=== PATIENT | female | born 2000 | race Caucasian/White ===

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

== ENCOUNTER 2018-03-28 22:32 | Emergency (ER) | payer BC ==
[2018-03-28 22:40] VITALS: RESP 18; TEMP 98.1
--- NOTE | 2018-03-28 23:07 | ED ---
Recheck HPI - General Chief Complaint: Recheck/Abnormal Lab/Rx Stated Complaint: test Time Seen by Provider: 03/28/18 22:57 Source: patient, RN notes reviewed Mode of arrival: ambulatory Limitations: no limitations - History of Present Illness Initial Comments: This is a 18-year-old female who presents to the emergency department with request to have a test performed. Patient states that her last regular period was December 13. She states that at that time she took a test and it was negative. She states that her friend used a test from the same box and it came back negative but she was actually . Patient is concerned that she may be and requests a test. She states that she has felt a little nauseous and has had some abdominal cramping but denies any significant abdominal pain, vomiting, constipation or diarrhea, fevers or chills, chest pain or shortness of breath. - Related Data Home Medications Medication Instructions Recorded Confirmed No Known Home Medications [No 03/28/18 03/28/18 Known Home Medications] Allergies Allergy/AdvReac Type Severity Reaction Status Date / Time amoxicillin Allergy Rash/Hives Verified 03/28/18 22:40 sulfamethoxazole Allergy Rash/Hives Verified 03/28/18 22:40 [From Bactrim] trimethoprim [From Bactrim] Allergy Rash/Hives Verified 03/28/18 22:40 Review of Systems ROS Statement: Those systems with pertinent positive or pertinent negative responses have been documented in the HPI. ROS Other: All systems not noted in ROS Statement are negative. Past Medical History Past Medical History: No Reported History History of Any Multi-Drug Resistant Organisms: None Reported Past Surgical History: No Surgical Hx Reported Past Psychological History: No Psychological Hx Reported Smoking Status: Former smoker Past Alcohol Use History: Rare Past Drug Use History: None Reported General Exam - General Exam Comments Initial Comments: General: Awake and alert, well-developed; in no apparent distress. HEENT: Head atraumatic, normocephalic. Pupils are equal, round and reactive to light. Extraocular movements intact. Oropharynx moist without erythema or exudate. Neck: Supple. Normal ROM. Cardiovascular: Regular rate and rhythm. No murmurs, rubs or gallops. Chest symmetrical. Respiratory: Lungs clear to auscultation bilaterally. No wheezes, rales or rhonchi. Normal respiratory effort with no use of accessory muscles. Abdomen: Soft, non-tender, non-distended. No rigidity, rebound or guarding. Normal bowel sounds in all 4 quadrants. Musculoskeletal: Normal ROM, no tenderness bilateral upper and lower extremities. Ambulating normally. Skin: [place], warm and dry without rashes or lesions. Neurological: Alert and oriented x3. CN II-XII grossly intact. Speech is fluent and answers are appropriate. No focal neuro deficits. Psychiatric: Normal mood and affect. No overt signs of depression or anxiety noted. Limitations: no limitations Course Vital Signs 03/28/18 22:38 Temperature 98.1 F Pulse Rate 87 Respiratory 18 Rate Blood Pressure 140/87 O2 Sat by Pulse 100 Oximetry Medical Decision Making - Medical Decision Making This is a 18-year-old female who presents to emergency department with request for test. Urine test was obtained revealed negative urine hCG. Patient will be discharged home at this time. - Lab Data Lab Results 03/28/18 03/28/18 Range/Units 22:50 22:50 Urine Color Yellow Urine Appearance Cloudy H (Clear) Urine pH 5.5 (5.0-8.0) Ur Specific [place] 1.024 (1.001-1.035) Urine Protein Trace H (Negative) Urine Glucose (UA) Negative (Negative) Urine Ketones Negative (Negative) Urine Blood Negative (Negative) Urine Nitrite Negative (Negative) Urine Bilirubin Negative (Negative) Urine Urobilinogen <2.0 (<2.0) mg/dL Ur Leukocyte Esterase Negative (Negative) Urine RBC 1 (0-5) /hpf Urine WBC 2 (0-5) /hpf Ur Squamous Epith Cells 6 H (0-4) /hpf Urine Mucus Rare H (None) /hpf Urine HCG, Qual Not Detected (Not Detectd) Disposition Clinical Impression: Negative test Disposition: HOME SELF-CARE Condition: Good Instructions: (ED) Additional Instructions: Please follow up with primary care provider within 1-2 days. Return to emergency department if symptoms should worsen or any concerns arise. Is patient prescribed a controlled substance at d/c from ED?: No Referrals: Nehemiah Valles DO [Primary Care Provider] - 1-2 days Time of Disposition: 23:58
[2018-03-28 23:49] LABS: Appearance,Urine Cloudy (Clear); Bilirubin,Urine Negative (Negative); Blood,Urine Negative (Negative); Color,Urine Yellow; Glucose,Urine (UA) Negative (Negative); Ketones,Urine Negative (Negative); Leukocyte Esterase,Urine Negative (Negative); Mucus,Urine Rare /hpf; Nitrite,Urine Negative (Negative); PH, Urine 5.5 (5.0-8.0); Protein,Urine Trace (Negative); RBC,Urine 1 /hpf (0-5); Specific Gravity,Urine 1.024 (1.001-1.035); Squamous Epithelial Cell,Urine 6 /hpf (0-4); Urobilinogen,Urine <2.0 mg/dL (<2.0); WBC,Urine 2 /hpf (0-5)
[2018-03-29 00:07] VITALS: BP 156/78; PULSE 78
== END 2018-03-29 00:07 | disposition home or self-care (01) ==
LOC: EC 22:32
DX: Z32.02 Encounter for pregnancy test, result negative (principal); R11.0 Nausea; R10.9 Unspecified abdominal pain; Z87.891 Personal history of nicotine dependence; Z88.0 Allergy status to penicillin; Z88.1 Allergy status to other antibiotic agents; Z88.2 Allergy status to sulfonamides
CPT/HCPCS: 81001; 81025; 99282

== ENCOUNTER 2019-11-01 08:21 | Emergency (ER) | payer BC ==
[2019-11-01 08:38] VITALS: TEMP 97.9
[2019-11-01] MEDS ORDERED: SODIUM CHLORIDE 0.9% 1,000 ML IV STA (09:40)
--- NOTE | 2019-11-01 10:17 | XR ---
EXAMINATION TYPE: XR chest 2V DATE OF EXAM: 11/01/2019 COMPARISON: NONE HISTORY: Syncope and lightheadedness TECHNIQUE: Frontal and lateral views of the chest are obtained. FINDINGS: There is no focal air space opacity, pleural effusion, or pneumothorax seen. Bilateral ni pple rings are noted. The cardiac silhouette size is within normal limits. The osseous structures a re intact. IMPRESSION: No acute cardiopulmonary process.
[2019-11-01 10:26] LABS: ALT 12 U/L (4-34); AST 20 U/L (14-36); African American GFR (CKD) >90 (>60 ml/min/1.73 sqM); Albumin 4.4 g/dL (3.5-5.0); Alkaline Phosphatase 55 U/L (38-126); Anion Gap 9 mmol/L; Basophils # (A) 0.1 k/uL (0-0.2); Basophils % (A) 1 %; Blood Urea Nitrogen 8 mg/dL (7-17); Calcium 9.3 mg/dL (8.4-10.2); Carbon Dioxide 22 mmol/L (22-30); Chloride 107 mmol/L (98-107); Eosinophils # (A) 0.1 k/uL (0-0.7); Eosinophils % (A) 1 %; Glucose 97 mg/dL (74-99); HCT 41.7 % (34.0-46.0); HGB 13.6 gm/dL (11.4-16.0); Lymphocytes # (A) 1.8 k/uL (1.0-4.8); Lymphocytes % (A) 17 %; MCHC 32.6 g/dL (31.0-37.0); MCV 89.2 fL (80.0-100.0); Mean Platelet Volume 9.8; Monocytes # (A) 0.6 k/uL (0-1.0); Monocytes % (A) 5 %; Neutrophils # (A) 7.9 k/uL (1.3-7.7); Neutrophils % (A) 75 %; Non-African American GFR(CKD) >90 (>60 ml/min/1.73 sqM); Platelet Count 234 k/uL (150-450); Potassium 4.1 mmol/L (3.5-5.1); RBC 4.68 m/uL (3.80-5.40); RDW 13.4 % (11.5-15.5); Sodium 138 mmol/L (137-145); Total Bilirubin 0.5 mg/dL (0.2-1.3); Total Protein 7.3 g/dL (6.3-8.2); WBC 10.5 k/uL (3.8-10.6)
[2019-11-01] MEDS ORDERED: DIPH,PERTUS(ACELL)TETVAC-LF 0.5 ML VIAL IM ONE (10:26)
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
[2019-11-01 10:29] LABS: Prothrombin Time 10.4 sec (9.0-12.0)
[2019-11-01 10:30] LABS: Partial Thromboplastin Time 24.7 sec (22.0-30.0)
[2019-11-01 12:01] LABS: Appearance,Urine Cloudy (Clear); Bacteria,Urine Moderate /hpf; Bilirubin,Urine Negative (Negative); Blood,Urine Negative (Negative); Color,Urine Yellow; Glucose,Urine (UA) Negative (Negative); Ketones,Urine Negative (Negative); Leukocyte Esterase,Urine Negative (Negative); Mucus,Urine Moderate /hpf; Nitrite,Urine Negative (Negative); Protein,Urine Negative (Negative); RBC,Urine 5 /hpf (0-5); Specific Gravity,Urine 1.018 (1.001-1.035); Squamous Epithelial Cell,Urine 1 /hpf (0-4); Urobilinogen,Urine <2.0 mg/dL (<2.0); WBC,Urine 7 /hpf (0-5)
[2019-11-01 12:07] VITALS: BP 120/68; PULSE 61; RESP 18
== END 2019-11-01 12:08 | disposition home or self-care (01) ==
LOC: EC 08:21
DX: R55 Syncope and collapse (principal); T24.202A Burn of second degree of unspecified site of left lower limb, except ankle and foot, initial encounter; T31.0 Burns involving less than 10% of body surface; Z23 Encounter for immunization; Z87.891 Personal history of nicotine dependence; Z88.0 Allergy status to penicillin; Z88.1 Allergy status to other antibiotic agents; Z88.2 Allergy status to sulfonamides; X18.XXXA Contact with other hot metals, initial encounter
CPT/HCPCS: 36415; 71046; 80053; 81001; 81025; 83735; 84484; 85025; 85610; 85730; 90471; 90715; 93005; 96360; 99284

== ENCOUNTER 2021-05-05 16:37 | Emergency (ER) | payer BC ==
[2021-05-05 16:59] VITALS: BP 144/93; PULSE 71; RESP 16; TEMP 98.6
[2021-05-05 18:26] LABS: Basophils # (A) 0.1 k/uL (0-0.2); Basophils % (A) 1 %; Eosinophils # (A) 0.1 k/uL (0-0.7); Eosinophils % (A) 1 %; HCT 40.1 % (34.0-46.0); Lymphocytes # (A) 1.6 k/uL (1.0-4.8); Lymphocytes % (A) 20 %; MCH 31.9 pg (25.0-35.0); MCHC 34.8 g/dL (31.0-37.0); MCV 91.7 fL (80.0-100.0); Mean Platelet Volume 9.8; Monocytes # (A) 0.6 k/uL (0-1.0); Monocytes % (A) 7 %; Neutrophils # (A) 5.6 k/uL (1.3-7.7); Neutrophils % (A) 69 %; Platelet Count 206 k/uL (150-450); RBC 4.37 m/uL (3.80-5.40); RDW 12.9 % (11.5-15.5)
[2021-05-05 18:30] LABS: Appearance,Urine Cloudy (Clear); Bacteria,Urine Rare /hpf; Bilirubin,Urine Negative (Negative); Blood,Urine Large (Negative); Color,Urine Yellow; Glucose,Urine (UA) Negative (Negative); Ketones,Urine Negative (Negative); Leukocyte Esterase,Urine Negative (Negative); Mucus,Urine Rare /hpf; Nitrite,Urine Negative (Negative); PH, Urine 5.5 (5.0-8.0); Protein,Urine 1+ (Negative); RBC,Urine 2 /hpf (0-5); Specific Gravity,Urine 1.031 (1.001-1.035); Squamous Epithelial Cell,Urine 10 /hpf (0-4); Urobilinogen,Urine <2.0 mg/dL (<2.0); WBC,Urine 4 /hpf (0-5)
[2021-05-05 18:38] LABS: ALT 14 U/L (4-34); AST 22 U/L (14-36); African American GFR (CKD) >90 (>60 ml/min/1.73 sqM); Albumin 4.5 g/dL (3.5-5.0); Alkaline Phosphatase 53 U/L (38-126); Anion Gap 10 mmol/L; Blood Urea Nitrogen 7 mg/dL (7-17); Calcium 9.5 mg/dL (8.4-10.2); Carbon Dioxide 23 mmol/L (22-30); Chloride 103 mmol/L (98-107); Glucose 90 mg/dL (74-99); Non-African American GFR(CKD) >90 (>60 ml/min/1.73 sqM); Potassium 3.8 mmol/L (3.5-5.1); Sodium 136 mmol/L (137-145); Total Bilirubin 0.2 mg/dL (0.2-1.3); Total Protein 7.4 g/dL (6.3-8.2)
--- NOTE | 2021-05-05 18:40 | ED ---
Female Urogenital HPI - General Chief complaint: Vaginal Bleeding Stated complaint: 10 wks preg, vag bleeding Time Seen by Provider: 05/05/21 17:32 Source: patient Mode of arrival: ambulatory Limitations: no limitations - History of Present Illness Initial comments: Patient is a 21-year-old female, currently 11 weeks , presenting to the emergency Department with complaints of vaginal bleeding started about 4:30 this evening just prior to arrival. Patient states she got out of the shower and noticed some bleeding that started. States she did initially have a small gush of bright red blood and then now it swelling down. She denies any abdominal pain, no abdominal cramping. This is her first , her WOOD BOATBUILDER is Dr. Bazan. She's had no complications thus far, she states she had an ultrasound a couple weeks ago that showed no acute abnormalities. She denies any recent fevers or chills, no dysuria, no chest pain or shortness of breath. She denies any previous abdominal surgeries. She has no further complaints. Her vitals ar e stable upon arrival. - Related Data Home Medications Medication Instructions Recorded Confirmed No Known Home Medications 05/05/21 05/05/21 Allergies Allergy/AdvReac Type Severity Reaction Status Date / Time amoxicillin Allergy Rash/Hives Verified 05/05/21 18:06 Penicillins Allergy Unknown Verified 05/05/21 18:06 sulfamethoxazole Allergy Rash/Hives Verified 05/05/21 18:06 [From Bactrim] trimethoprim [From Bactrim] Allergy Rash/Hives Verified 05/05/21 18:06 Review of Systems ROS Statement: Those systems with pertinent positive or pertinent negative responses have been documented in the HPI. ROS Other: All systems not noted in ROS Statement are negative. Past Medical History Past Medical History: No Reported History History of Any Multi-Drug Resistant Organisms: None Reported Past Surgical History: No Surgical Hx Reported Past Psychological History: No Psychological Hx Reported Smoking Status: Former smoker Past Alcohol Use History: Rare Past Drug Use History: None Reported General Exam - General Exam Comments Initial Comments: GENERAL: Patient is well-developed and well-nourished. Patient is nontoxic and in no acute distress. HEAD: Atraumatic, normocephalic. EYES: Pupils equal round and reactive to light, extraocular movements intact, sclera anicteric, conjunctiva are normal. Eyelids were unremarkable. ENT: Nares patent, oropharynx clear without exudates. Moist mucous membranes. NECK: Normal range of motion, supple without lymphadenopathy or JVD. LUNGS: Unlabored respirations. Breath sounds clear to auscultation bilaterally and equal. No wheezes rales or rhonchi. HEART: Regular rate and rhythm without murmurs, rubs or gallops. ABDOMEN: Soft, nontender, normoactive bowel sounds. No guarding, no rebound. No masses appreciated. : Deferred MUSCULOSKELETAL: Normal extremities with adequate strength and normal range of motion, no pitting or edema. No clubbing or cyanosis. NEUROLOGICAL: Patient is alert and oriented x 3. PSYCH: Normal mood, normal affect. SKIN: Warm, Dry, normal turgor, no rashes or lesions noted. Limitations: no limitations Course Vital Signs 05/05/21 16:57 Temperature 98.6 F Pulse Rate 71 Respiratory 16 Rate Blood Pressure 144/93 O2 Sat by Pulse 99 Oximetry Medical Decision Making - Medical Decision Making Patient is a 21-year-old female, currently 11 weeks , presenting with vaginal bleeding started 2 hours prior to arrival. This is her first , WOOD BOATBUILDER is Dr. Bazan. No other symptoms, no belly pain. Her vitals are stable. Labs are all within normal limits, ultrasound reveals a viable IUP with heart rate of 170s, possible small subchorionic bleed, no other complicated process seen. Patient's blood type is A+. I discussed these findings with the patient. I recommended pelvic rest and follow up with her WOOD BOATBUILDER. She is agreeable to this plan of care. Return parameters were discussed and she verbalized understanding. Case discussed with Dr. Thomas. - Lab Data Result diagrams: 05/05/21 18:18 05/05/21 18:18 Lab Results 05/05/21 05/05/21 05/05/21 Range/Units 18:18 18:18 18:18 WBC 8.0 (3.8-10.6) k/uL RBC 4.37 (3.80-5.40) m/uL Hgb 14.0 (11.4-16.0) gm/dL Hct 40.1 (34.0-46.0) % MCV 91.7 (80.0-100.0) fL MCH 31.9 (25.0-35.0) pg MCHC 34.8 (31.0-37.0) g/dL RDW 12.9 (11.5-15.5) % Plt Count 206 (150-450) k/uL MPV 9.8 Neutrophils % 69 % Lymphocytes % 20 % Monocytes % 7 % Eosinophils % 1 % Basophils % 1 % Neutrophils # 5.6 (1.3-7.7) k/uL Lymphocytes # 1.6 (1.0-4.8) k/uL Monocytes # 0.6 (0-1.0) k/uL Eosinophils # 0.1 (0-0.7) k/uL Basophils # 0.1 (0-0.2) k/uL Sodium 136 L (137-145) mmol/L Potassium 3.8 (3.5-5.1) mmol/L Chloride 103 (98-107) mmol/L Carbon Dioxide 23 (22-30) mmol/L Anion Gap 10 mmol/L BUN 7 (7-17) mg/dL Creatinine 0.55 (0.52-1.04) mg/dL Est GFR (CKD-EPI)AfAm >90 (>60 ml/min/1.73 sqM) Est GFR (CKD-EPI)NonAf >90 (>60 ml/min/1.73 sqM) Glucose 90 (74-99) mg/dL Calcium 9.5 (8.4-10.2) mg/dL Total Bilirubin 0.2 (0.2-1.3) mg/dL AST 22 (14-36) U/L ALT 14 (4-34) U/L Alkaline Phosphatase 53 (38-126) U/L Total Protein 7.4 (6.3-8.2) g/dL Albumin 4.5 (3.5-5.0) g/dL Urine Color Yellow Urine Appearance Cloudy H (Clear) Urine pH 5.5 (5.0-8.0) Ur Specific [place] 1.031 (1.001-1.035) Urine Protein 1+ H (Negative) Urine Glucose (UA) Negative (Negative) Urine Ketones Negative (Negative) Urine Blood Large H (Negative) Urine Nitrite Negative (Negative) Urine Bilirubin Negative (Negative) Urine Urobilinogen <2.0 (<2.0) mg/dL Ur Leukocyte Esterase Negative (Negative) Urine RBC 2 (0-5) /hpf Urine WBC 4 (0-5) /hpf Ur Squamous Epith Cells 10 H (0-4) /hpf Urine Bacteria Rare H (None) /hpf Urine Mucus Rare H (None) /hpf Blood Type Blood Type Recheck Bld Type Recheck Status 05/05/21 Range/Units 18:18 WBC (3.8-10.6) k/uL RBC (3.80-5.40) m/uL Hgb (11.4-16.0) gm/dL Hct (34.0-46.0) % MCV (80.0-100.0) fL MCH (25.0-35.0) pg MCHC (31.0-37.0) g/dL RDW (11.5-15.5) % Plt Count (150-450) k/uL MPV Neutrophils % % Lymphocytes % % Monocytes % % Eosinophils % % Basophils % % Neutrophils # (1.3-7.7) k/uL Lymphocytes # (1.0-4.8) k/uL Monocytes # (0-1.0) k/uL Eosinophils # (0-0.7) k/uL Basophils # (0-0.2) k/uL Sodium (137-145) mmol/L Potassium (3.5-5.1) mmol/L Chloride (98-107) mmol/L Carbon Dioxide (22-30) mmol/L Anion Gap mmol/L BUN (7-17) mg/dL Creatinine (0.52-1.04) mg/dL Est GFR (CKD-EPI)AfAm (>60 ml/min/1.73 sqM) Est GFR (CKD-EPI)NonAf (>60 ml/min/1.73 sqM) Glucose (74-99) mg/dL Calcium (8.4-10.2) mg/dL Total Bilirubin (0.2-1.3) mg/dL AST (14-36) U/L ALT (4-34) U/L Alkaline Phosphatase (38-126) U/L Total Protein (6.3-8.2) g/dL Albumin (3.5-5.0) g/dL Urine Color Urine Appearance (Clear) Urine pH (5.0-8.0) Ur Specific [place] (1.001-1.035) Urine Protein (Negative) Urine Glucose (UA) (Negative) Urine Ketones (Negative) Urine Blood (Negative) Urine Nitrite (Negative) Urine Bilirubin (Negative) Urine Urobilinogen (<2.0) mg/dL Ur Leukocyte Esterase (Negative) Urine RBC (0-5) /hpf Urine WBC (0-5) /hpf Ur Squamous Epith Cells (0-4) /hpf Urine Bacteria (None) /hpf Urine Mucus (None) /hpf Blood Type A Positive Blood Type Recheck No Previous Record Bld Type Recheck Status [facility] ONLY Disposition Clinical Impression: Vaginal bleeding during , Subchorionic hemorrhage in first trimester Disposition: HOME SELF-CARE Condition: Stable Instructions (If sedation given, give patient instructions): Subchorionic H emorrhage (ED) Additional Instructions: Please return to the Emergency Department if symptoms worsen or any other concerns. Recommend pelvic rest. Follow-up with your WOOD BOATBUILDER. Is patient prescribed a controlled substance at d/c from ED?: No Referrals: Nehemiah Valles DO [Primary Care Provider] - 1-2 days Sophie Bazan MD [STAFF PHYSICIAN] - 1-2 days Time of Disposition: 19:22
--- NOTE | 2021-05-05 19:11 | US ---
EXAMINATION TYPE: Transabdominal DATE OF EXAM: 05/05/2021 6:56 PM COMPARISON: NONE CLINICAL HISTORY: 11wks preg, bleeding x today. Bleeding. . EXAM PERFORMED: Transabdominal (TA) EXAM MEASUREMENTS: GESTATIONAL AGE / DATING Physician Established: (10 weeks/4 days) EDC: 11/27/2021 Dates by LMP: (10 weeks/4 days) EDC: 11/27/2021 Dates by First Scan: This is first scan at this facility. Dates by Current Scan for: (10 weeks/2 days) EDC: 11/29/2021 MATERNAL ANATOMY Uterus: 9.3 x 7.4 x 6.2 cm. Anteverted. Right Ovary: Not seen. Left Ovary: 3.4 x 2.3 x 2.2 cm. Post CDS / Adnexa: Appear to be wnl. Presence of free fluid: Not seen. Presence of corpus luteal cyst: Not seen. Presence of subchorionic bleed: Possible. Hypoechoic area seen adjacent to the gestational sac: 2.1 x 1.7 x 0.7 cm. GESTATION / SURVEY CRL: 3.37 cm. (10 weeks/2 days) Yolk Sac (normal less than 6mm): 4mm. Heart Rate: 177 bpm. Lowest measured 176 bpm, Highest measured 178 bpm. Rhythm: Upper limits of normal versus slightly high HR. IUP: Viable IUP Nuchal Translucency 10-14wks (normal less than 3mm): Not well seen. Exam slightly limited due to patient body habitus. Date of LMP: 02/20/2021 Beta HcG (if available): Not available. IMPRESSION: The ultrasound gestational age is 10 weeks and 2 days. No complicating process seen.
== END 2021-05-05 19:27 | disposition home or self-care (01) ==
LOC: EC 16:37
DX: O20.9 Hemorrhage in early pregnancy, unspecified (principal); Z3A.11 11 weeks gestation of pregnancy; Z87.891 Personal history of nicotine dependence
CPT/HCPCS: 36415; 76801; 80053; 81001; 85025; 86900; 86901; 99284

== ENCOUNTER 2021-08-18 17:58 | Emergency (ER) | payer BC ==
[2021-08-18] MEDS ORDERED: ONDANSETRON 4 MG/2 ML VIAL IVP STA (20:25)
[2021-08-18] MEDS ORDERED: SODIUM CHLORIDE 0.9% 1,000 ML IV STA ×2 (20:25→21:15)
[2021-08-18 20:45] LABS: Basophils % (A) 1 %; Eosinophils # (A) 0.1 k/uL (0-0.7); Eosinophils % (A) 1 %; HCT 41.3 % (34.0-46.0); HGB 14.4 gm/dL (11.4-16.0); Lymphocytes % (A) 18 %; MCH 31.2 pg (25.0-35.0); MCHC 34.9 g/dL (31.0-37.0); MCV 89.2 fL (80.0-100.0); Mean Platelet Volume 9.3; Monocytes # (A) 0.4 k/uL (0-1.0); Monocytes % (A) 7 %; Neutrophils # (A) 3.9 k/uL (1.3-7.7); Neutrophils % (A) 71 %; Platelet Count 149 k/uL (150-450); RBC 4.64 m/uL (3.80-5.40); RDW 13.6 % (11.5-15.5); WBC 5.5 k/uL (3.8-10.6)
[2021-08-18] MEDS ORDERED: SODIUM CHLORIDE 0.9% 50 ML IVPB ONE (20:45)
[2021-08-18 20:50] LABS: Appearance,Urine Cloudy (Clear); Bacteria,Urine Occasional /hpf; Bilirubin,Urine Negative (Negative); Blood,Urine Negative (Negative); Color,Urine Yellow; Glucose,Urine (UA) Negative (Negative); Ketones,Urine 4+ (Negative); Leukocyte Esterase,Urine Large (Negative); Mucus,Urine Many /hpf; Nitrite,Urine Negative (Negative); Protein,Urine 1+ (Negative); RBC,Urine 3 /hpf (0-5); Specific Gravity,Urine 1.033 (1.001-1.035); Squamous Epithelial Cell,Urine 17 /hpf (0-4); WBC,Urine 11 /hpf (0-5)
[2021-08-18] MEDS ORDERED: CASIRIVIMAB (REGN10933) (EUA) 600 MG, IMDEVIMAB (REGN10987) (EUA) 600 MG in SODIUM CHLO... IVPB ONE (21:00)
[2021-08-18 21:04] LABS: ALT 10 U/L (4-34); AST 26 U/L (14-36); African American GFR (CKD) >90 (>60 ml/min/1.73 sqM); Alkaline Phosphatase 93 U/L (38-126); Anion Gap 11 mmol/L; Blood Urea Nitrogen 7 mg/dL (7-17); Carbon Dioxide 19 mmol/L (22-30); Chloride 103 mmol/L (98-107); Glucose 79 mg/dL (74-99); Non-African American GFR(CKD) >90 (>60 ml/min/1.73 sqM); Potassium 3.9 mmol/L (3.5-5.1); Sodium 133 mmol/L (137-145); Total Bilirubin 0.5 mg/dL (0.2-1.3); Total Protein 7.5 g/dL (6.3-8.2)
[2021-08-18 23:36] VITALS: BP 105/67; PULSE 83; RESP 16; TEMP 98
[2021-08-18] MEDS ORDERED: ONDANSETRON 4 MG ODT STARTER PACK 2 TAB BTL PO STA (23:45)
--- NOTE | 2021-08-18 23:45 | ED ---
Nausea/Vomiting/Diarrhea HPI - General Chief complaint: Nausea/Vomiting/Diarrhea Stated complaint: Sent by urgent care for dehydration Time Seen by Provider: 08/18/21 20:04 Source: patient, RN notes reviewed Mode of arrival: ambulatory Limitations: no limitations - History of Present Illness Initial comments: The patient is a 21-year-old female presenting to the emergency department with concerns of dehydration. Patient is currently 25 weeks , this is her first , SUPPLY AND DISTRIBUTION MANAGER is Dr. Bazan. Patient states started feeling congested, mild cough and body aches that came on suddenly yesterday. She's also been having increasing nausea and vomiting. Patient denies any abdominal pain, no vaginal bleeding. She denies any chest pains. She does have some mild shortness of breath. No headaches, no fevers. No leg swelling. Patient has no further complaints. Her vital signs are stable upon arrival. - Related Data Home Medications Medication Instructions Recorded Confirmed No Known Home Medications 05/05/21 05/05/21 Allergies Allergy/AdvReac Type Severity Reaction Status Date / Time amoxicillin Allergy Rash/Hives Verified 08/18/21 18:47 Penicillins Allergy Unknown Verified 08/18/21 18:47 sulfamethoxazole Allergy Rash/Hives Verified 08/18/21 18:47 [From Bactrim] trimethoprim [From Bactrim] Allergy Rash/Hives Verified 08/18/21 18:47 Review of Systems ROS Statement: Those systems with pertinent positive or pertinent negative responses have been documented in the HPI. ROS Other: All systems not noted in ROS Statement are negative. Past Medical History Past Medical History: No Reported History History of Any Multi-Drug Resistant Organisms: None Reported Past Surgical History: No Surgical Hx Reported Past Psychological History: No Psychological Hx Reported Smoking Status: Former smoker Past Alcohol Use History: Rare Past Drug Use History: None Reported General Exam - General Exam Comments Initial Comments: GENERAL: Patient is well-developed and well-nourished. Patient is nontoxic and in no acute distress. HEAD: Atraumatic, normocephalic. EYES: Pupils equal round and reactive to light, extraocular movements intact, sclera anicteric, conjunctiva are normal. Eyelids were unremarkable. ENT: Oropharynx clear without exudates. Moist mucous membranes. NECK: Normal range of motion, supple without lymphadenopathy or JVD. LUNGS: Unlabored respirations. Breath sounds clear to auscultation bilaterally and equal. No wheezes rales or rhonchi. HEART: Regular rate and rhythm without murmurs, rubs or gallops. ABDOMEN: Soft, nontender, normoactive bowel sounds. No guarding, no rebound. No masses appreciated. MUSCULOSKELETAL: Normal extremities with adequate strength and normal range of motion, no pitting or edema. No clubbing or cyanosis. NEUROLOGICAL: Patient is alert and oriented x 3. SKIN: Warm, Dry, normal turgor, no rashes or lesions noted. Limitations: no limitations Course Vital Signs 08/18/21 08/18/21 08/18/21 18:47 20:21 23:36 Temperature 98.8 F 98.0 F Pulse Rate 77 99 83 Respiratory 20 22 16 Rate Blood Pressure 134/81 148/80 105/67 O2 Sat by Pulse 99 96 96 Oximetry Medical Decision Making - Medical Decision Making Patient is a 21-year-old female presenting for nausea vomiting, cough and congestion over the past 1-2 days. She is currently 25 weeks . Her rapid Covid is positive. Her urine shows 4+ ketones, 11 WBCs in her urine over this is a very dirty sample. She is has no dysuria or frequency. She did agree to monoclonal antibodies, she received these without adverse effects. She has received 2 L of fluids, Zofran. She reports improvement in her symptoms. Patient stable for discharge. I will give her a Zofran starter pack to go home with. She can follow up with her SUPPLY AND DISTRIBUTION MANAGER. Return parameters were discussed with her and she verbalized understanding. - Lab Data Result diagrams: 08/18/21 20:31 08/18/21 20:31 Lab Results 08/18/21 08/18/21 08/18/21 Range/Units 18:51 20:31 20:31 WBC 5.5 (3.8-10.6) k/uL RBC 4.64 (3.80-5.40) m/uL Hgb 14.4 (11.4-16.0) gm/dL Hct 41.3 (34.0-46.0) % MCV 89.2 (80.0-100.0) fL MCH 31.2 (25.0-35.0) pg MCHC 34.9 (31.0-37.0) g/dL RDW 13.6 (11.5-15.5) % Plt Count 149 L (150-450) k/uL MPV 9.3 Neutrophils % 71 % Lymphocytes % 18 % Monocytes % 7 % Eosinophils % 1 % Basophils % 1 % Neutrophils # 3.9 (1.3-7.7) k/uL Lymphocytes # 1.0 (1.0-4.8) k/uL Monocytes # 0.4 (0-1.0) k/uL Eosinophils # 0.1 (0-0.7) k/uL Basophils # 0.0 (0-0.2) k/uL Sodium (137-145) mmol/L Potassium (3.5-5.1) mmol/L Chloride (98-107) mmol/L Carbon Dioxide (22-30) mmol/L Anion Gap mmol/L BUN (7-17) mg/dL Creatinine (0.52-1.04) mg/dL Est GFR (CKD-EPI)AfAm (>60 ml/min/1.73 sqM) Est GFR (CKD-EPI)NonAf (>60 ml/min/1.73 sqM) Glucose (74-99) mg/dL Calcium (8.4-10.2) mg/dL Total Bilirubin (0.2-1.3) mg/dL AST (14-36) U/L ALT (4-34) U/L Alkaline Phosphatase (38-126) U/L Total Protein (6.3-8.2) g/dL Albumin (3.5-5.0) g/dL Urine Color Yellow Urine Appearance Cloudy H (Clear) Urine pH 6.0 (5.0-8.0) Ur Specific [place] 1.033 (1.001-1.035) Urine Protein 1+ H (Negative) Urine Glucose (UA) Negative (Negative) Urine Ketones 4+ H (Negative) Urine Blood Negative (Negative) Urine Nitrite Negative (Negative) Urine Bilirubin Negative (Negative) Urine Urobilinogen 2.0 (<2.0) mg/dL Ur Leukocyte Esterase Large H (Negative) Urine RBC 3 (0-5) /hpf Urine WBC 11 H (0-5) /hpf Ur Squamous Epith Cells 17 H (0-4) /hpf Urine Bacteria Occasional H (None) /hpf Urine Mucus Many H (None) /hpf Coronavirus (PCR) Detected A (Not Detectd) 08/18/21 Range/Units 20:31 WBC (3.8-10.6) k/uL RBC (3.80-5.40) m/uL Hgb (11.4-16.0) gm/dL Hct (34.0-46.0) % MCV (80.0-100.0) fL MCH (25.0-35.0) pg MCHC (31.0-37.0) g/dL RDW (11.5-15.5) % Plt Count (150-450) k/uL MPV Neutrophils % % Lymphocytes % % Monocytes % % Eosinophils % % Basophils % % Neutrophils # (1.3-7.7) k/uL Lymphocytes # (1.0-4.8) k/uL Monocytes # (0-1.0) k/uL Eosinophils # (0-0.7) k/uL Basophils # (0-0.2) k/uL Sodium 133 L (137-145) mmol/L Potassium 3.9 (3.5-5.1) mmol/L Chloride 103 (98-107) mmol/L Carbon Dioxide 19 L (22-30) mmol/L Anion Gap 11 mmol/L BUN 7 (7-17) mg/dL Creatinine 0.43 L (0.52-1.04) mg/dL Est GFR (CKD-EPI)AfAm >90 (>60 ml/min/1.73 sqM) Est GFR (CKD-EPI)NonAf >90 (>60 ml/min/1.73 sqM) Glucose 79 (74-99) mg/dL Calcium 9.0 (8.4-10.2) mg/dL Total Bilirubin 0.5 (0.2-1.3) mg/dL AST 26 (14-36) U/L ALT 10 (4-34) U/L Alkaline Phosphatase 93 (38-126) U/L Total Protein 7.5 (6.3-8.2) g/dL Albumin 4.0 (3.5-5.0) g/dL Urine Color Urine Appearance (Clear) Urine pH (5.0-8.0) Ur Specific [place] (1.001-1.035) Urine Protein (Negative) Urine Glucose (UA) (Negative) Urine Ketones (Negative) Urine Blood (Negative) Urine Nitrite (Negative) Urine Bilirubin (Negative) Urine Urobilinogen (<2.0) mg/dL Ur Leukocyte Esterase (Negative) Urine RBC (0-5) /hpf Urine WBC (0-5) /hpf Ur Squamous Epith Cells (0-4) /hpf Urine Bacteria (None) /hpf Urine Mucus (None) /hpf Coronavirus (PCR) (Not Detectd) Disposition Clinical Impression: Dehydration, COVID-19 Disposition: HOME SELF-CARE Condition: Stable Instructions (If sedation given, give patient instructions): Coronavirus Disease 2019 (COVID-19), Dehydration (ED) Additional Instructions: Please return to the Emergency Department if symptoms worsen or any other concerns. Continue to increase her fluids. May take Zofran every 8 hours for any additional nausea or vomiting. Please follow up with your SUPPLY AND DISTRIBUTION MANAGER. Is patient prescribed a controlled substance at d/c from ED?: No Referrals: Nehemiah Valles DO [Primary Care Provider] - 1-2 days Sophie Bazan MD [STAFF PHYSICIAN] - 1-2 days Time of Disposition: 23:45
== END 2021-08-19 00:09 | disposition home or self-care (01) ==
LOC: EC 17:58
DX: O99.282 Endocrine, nutritional and metabolic diseases complicating pregnancy, second trimester (principal); E86.0 Dehydration; O98.512 Other viral diseases complicating pregnancy, second trimester; U07.1 COVID-19; Z3A.25 25 weeks gestation of pregnancy
CPT/HCPCS: 96365; 96375 ×2; 96361 ×4; 99284 ×2; 36415; 80053; 85025; 81001; 87086; 87635; M0243; J2405; S0119; Q0243

== ENCOUNTER 2021-11-12 22:32 | Outpatient (CLI) | payer BC ==
[2021-11-13 00:38] VITALS: BP 134/82; PULSE 112; RESP 16; TEMP 97
--- NOTE | 2022-01-14 21:50 | P.MSEPDOC ---
Presenting Problems - Arrival Data Date of Arrival on Unit: 11/12/21 Time of Arrival on Unit: 22:32 Mode of Transport: Ambulatory - Complaint OB-Reason for Admission/Chief Complaint: Normal Show Comment: Patient had a doctors appt this morning. Cervical exam in office was 3- 4cm. and 70%effaced. Patient had some pink discharge on toilet paper when she wiped. Medical History - Information : 1 Para: 0 Term: 0 : 0 Abortions: Spontaneous or Elective: 0 Number of Living Children: 1 - Gestational Age Gestational Age by BUBBA (wks/days): 34 Weeks and 0 Days Review of Systems - Review of Systems Constitutional: No problems Breast: No problems ENT: No problems Cardiovascular: No problems Respiratory: No problems Gastrointestinal: No problems Genitourinary: No problems Musculoskeletal: No problems Neurological: No problems Skin: No problems Vital Signs - Temperature Temperature: 97.0 F Temperature Source: Oral - Pulse Right Brachial Pulse Rate: 112 Pulse Assessment Method: Automatic Cuff - Respirations Respiratory Rate: 16 Oxygen Delivery Method: Room Air - Blood Pressure Right Arm Blood Pressure: 134/82 Blood Pressure Mean: 99 Blood Pressure Source: Automatic Cuff Medical Screen Scoring - Cervical Exam Dilation (cm): 3.5 Effacement (%): 60 Station: -2 Membranes: Intact - Assessment - Baby A Baseline FHR: 130 Heart Rate - NICHD Category: Category I (Normal) NST: Reactive Physician Notification - Physician Notified Physician Notified Date: 11/12/21 Physician Notified Time: 23:56 Physician: Ileana Mcdonnell New Order Received: Yes - Notification Comment Comment: RN spoke with Dr. Mcdonnell and reported that earlier at dinner patient had wiped. using the bathroom and found pink/brown discharge on the toilet paper. patient states no contractions was told by Beni that bloody show could be sign of labor so she came in. Patient stating no pain. Reactive NST. Vital signs WNL. TOCO not showing contractions and patient states she is not feeling any contractions. SVE remained unchanged from office visit this AM and after one hour recheck. Patient is to be discharged home and is to keep appointment on Wednesday with Dr. Bazan. Patient is scheduled to be induced next . Patient updated on plan of care and is in agreement. Maternal Triage Index - Maternal Triage Index Presenting for scheduled procedure w/no complaint: No - Stat/Priority 1 Stat Priority 1: No - Urgent/Priority 2 Urgent Priority 2: No - Prompt/Priority 3 Prompt Priority 3: No - Non-Urgent/Priority 4 Non-Urgent Priority 4: Yes Criteria Met for Priority 4: >37 weeks with pink/brown vaginal discharge after urinating Disposition - Disposition OB Disposition: Discharge to home Discharge Date: 11/13/21 Discharge Time: 00:30 I agree with the RN Medical Screening Exam: Yes Case reviewed; plan agreed upon as documented in EMR&OBIX.: Yes Diagnosis: FALSE LABOR BEFORE 37 COMPLETED WEEKS OF GEST, THIRD TRI
== END 2021-11-13 | disposition home or self-care (01) ==
LOC: FBPOP 22:32
PROVIDERS: ATTEND Obstetrics & Gynecology Obstetrics
DX: O47.03 False labor before 37 completed weeks of gestation, third trimester (principal); Z3A.34 34 weeks gestation of pregnancy; Z88.1 Allergy status to other antibiotic agents; Z88.0 Allergy status to penicillin; Z88.2 Allergy status to sulfonamides; Z87.891 Personal history of nicotine dependence
CPT/HCPCS: 59025; 99213

== ENCOUNTER 2021-11-19 18:10 | Inpatient (IN) | payer BC, OTHER ==
[2021-11-19] MEDS ORDERED: TERBUTALINE 1 MG/ML VIAL SQ PRN (19:32)
[2021-11-19] MEDS ORDERED: OXYTOCIN 10 UNIT/ML 1 ML VIAL IM PRN (19:32)
[2021-11-19] MEDS ORDERED: METHYLERGONOVINE 0.2 MG/ML 1 ML AMP IM PRN (19:32)
[2021-11-19] MEDS ORDERED: CARBOPROST TROMETHAMINE 250 MCG/ML 1 ML AMP IM PRN (19:32)
[2021-11-19] MEDS ORDERED: LIDOCAINE 1% (PF) 10 MG/ML (30 ML SDV) SQ PRN (19:32)
[2021-11-19] MEDS: LACTATED RINGERS 1,000 ML IV SCH (19:40)
[2021-11-19] MEDS ORDERED: OXYTOCIN 30 UNITS/500 ML NS 30 UNIT in SALINE 1 500ML.BAG IV SCH ×2 (19:45→21:00)
[2021-11-19 19:52] LABS: Basophils % (A) 0 %; Eosinophils # (A) 0.1 k/uL (0-0.7); Eosinophils % (A) 1 %; HCT 38.3 % (34.0-46.0); HGB 12.8 gm/dL (11.4-16.0); Lymphocytes # (A) 1.5 k/uL (1.0-4.8); Lymphocytes % (A) 9 %; MCH 29.2 pg (25.0-35.0); MCHC 33.5 g/dL (31.0-37.0); MCV 87.3 fL (80.0-100.0); Monocytes # (A) 0.6 k/uL (0-1.0); Monocytes % (A) 4 %; Neutrophils # (A) 13.8 k/uL (1.3-7.7); Neutrophils % (A) 85 %; Platelet Count 205 k/uL (150-450); RBC 4.38 m/uL (3.80-5.40); RDW 14.3 % (11.5-15.5); WBC 16.2 k/uL (3.8-10.6)
--- NOTE | 2021-11-19 20:54 | P.HPOB ---
History of Present Illness H&P Date: 11/19/21 Chief Complaint: Labor at 38-6/7 This is a 21-year-old 1 para 0 woman with an estimated due date of 11/27/2021 based on LMP consistent with first trimester ultrasound. She presents at 38-6/7 weeks gestation in advanced active labor. Her has been complicated by covert infection in the the second trimester. She's had no residual issues. She does have a history of fainting and marijuana use in the early . She reports onset of painful uterine contractions approximately 18-24 hours ago. She was seen for routine visit earlier in the day and was 4+ centimeters dilated. She presented to labor and delivery triage at approximately 1830 and was initially 5 cm dilated. She progressed to 7 cm dilated and was admitted in active labor. Laboratory data: Blood type A+, antibody screen negative, rubella immune, hepatitis B surface antigen negative, gonorrhea and clinic cultures negative, HIV negative, glucose tolerance testing within normal limits, group B strep negative. Review of Systems All systems: negative Past Medical History Past Medical History: No Reported History History of Any Multi-Drug Resistant Organisms: None Reported Past Surgical History: No Surgical Hx Reported Smoking Status: Never smoker Medications and Allergies Home Medications Medication Instructions Recorded Confirmed Type Pnv No.95/Ferrous Fum/Folic AC 1 tab PO DAILY 11/12/21 11/12/21 History [ Multivitamin Tablet] Allergies Allergy/AdvReac Type Severity Reaction Status Date / Time amoxicillin Allergy Rash/Hives Verified 11/19/21 19:29 Penicillins Allergy Rash/Hives Verified 11/19/21 19:29 sulfamethoxazole Allergy Rash/Hives Verified 11/19/21 19:29 [From Bactrim] trimethoprim [From Bactrim] Allergy Rash/Hives Verified 11/19/21 19:29 Exam Intake and Output 11/19/21 11/19/21 11/19/21 06:59 14:59 22:59 Other: Weight 120.202 kg Physical exam is performed. Upon my initial evaluation this is an extremely uncomfortable actively laboring female who is unable to hold still in the bed. heart tones are not adequately monitored for this reason. On pelvic examination the cervix is completely dilated. Artificial rupture of membranes is undertaken and copious clear fluid is noted. scalp electrode was placed to get heart tones which were noted to be in the low 100s at this time. Patient has strong urge to push. Results Result Diagrams: 11/19/21 19:40 Abnormal Lab Results - Last 24 Hours (Table) 11/19/21 Range/Units 19:40 WBC 16.2 H (3.8-10.6) k/uL Neutrophils # 13.8 H (1.3-7.7) k/uL Assessment and Plan (1) Spontaneous onset of labor Current Visit: Yes Status: Acute Code(s): [id number] - SNOMED Code(s): 39148057 (2) 38 weeks gestation of Current Visit: Yes Status: Acute Code(s): Z3A.38 - 38 WEEKS GESTATION OF SNOMED Code(s): 90013488 Plan: 21-year-old 1 para 0 at 30-6/7 weeks in advanced active labor. Rh+ and group B strep negative. Anticipate normal spontaneous vaginal delivery
[2021-11-19] MEDS ORDERED: BENZOCAINE/MENTHOL SPRAY 1 GM/SPRAY AEROSOL TOPICAL PRN (21:00)
[2021-11-19] MEDS ORDERED: diphenhydrAMINE 25 MG CAP PO PRN (21:00)
[2021-11-19] MEDS ORDERED: ACETAMINOPHEN TAB 325 MG TAB PO PRN (21:00)
[2021-11-19] MEDS ORDERED: diphenhydrAMINE 50 MG CAP PO PRN (21:00)
[2021-11-19] MEDS ORDERED: HYDROCORTISONE 2.5% RECTAL CREAM 30 GM TUBE RECTAL PRN (21:00)
[2021-11-19] MEDS ORDERED: LANOLIN CREAM 5 GM TUBE TOPICAL PRN (21:00)
[2021-11-19] MEDS ORDERED: diphenhydrAMINE 50 MG/ML 1 ML VIAL IVP PRN ×2 (21:00)
[2021-11-19] MEDS ORDERED: SIMETHICONE 80 MG CHEWABLE PO PRN (21:00)
[2021-11-19] MEDS ORDERED: ZOLPIDEM 5 MG TAB PO PRN (21:00)
--- NOTE | 2021-11-19 21:00 | P.PROBDLV ---
Vaginal Delivery Note - . Vaginal Delivery Note: Findings: Male infant in the right occiput anterior position with nuchal cord 1. Apgars of 8 at 1 minute and 9 at 5 minutes weighing 7 lbs. 11 oz., 3490 g. Intact, three-vessel cord placenta with large dark adherent clot encompassing at least two thirds of the placenta consistent with possible abruption. Right labial and right vaginal sulcus tear. Left labial tear. First-degree perineal laceration. EBL approximately 300 mL's. Delivery summary: This is a 21-year-old 1 para 0 woman who presented in advanced active labor at 38-6/7 weeks' gestation upon presentation to labor and delivery triage she was 5 cm dilated. While in triage she Progressed to 7 cm dilated and was admitted. She requested an epidural anesthetic however before laboratory data was available for this to be placed she did progress to complete cervical dilation. No ongoing uninterrupted heart rate tracing was obtained secondary to extreme maternal discomfort and inability to adequately trace. When she made complete cervical dilation artificial rupture of membranes was undertaken. Copious clear fluid was noted. At that time I placed a scalp electrode and the heart tones were noted to be in the low 100s. She had strong urge to push. She was repositioned, prepped and draped in the dorsal modified Constantino position. She then had a relatively uncontrolled delivery with 2 maternal efforts. The infant was delivered rapidly and in its entirety onto the field. Nuchal cord 1 was reduced. Nose and mouth were bulb suctioned. Infant was placed on the maternal abdomen. The cord was clamped and cut after approximately 1 minute. The placenta was noted to be spontaneously delivering at this time as well. The placenta was expressed and noted to be intact. Brisk bright red vaginal bleeding was noted. She received Pitocin intravenously however with inspection of the perineum there is noted to be an actively bleeding right labial extending into right sulcal laceration. This was infused with lidocaine and repaired in a running fashion with 3-0 Vicryl suture. 2 additional [id number] sutures were placed in the right side at approximately 7 o'clock near hymeneal remnant for hemostasis. First-degree perineal laceration was noted, infused with lidocaine and repaired with a [id number] suture. Further inspection of the vagina revealed actively bleeding left labial laceration that was infused with lidocaine and repaired with 2 [id number] 3-0 Vicryl sutures. Careful inspection of the remainder of the vagina and cervix were undertaken and no further lacerations were noted. No active bleeding was visualized. The uterus was firm and below the level of the umbilicus. EBL was approximately 350 mL's. All counts were correct and both mother and infant were doing well post delivery in the room.
[2021-11-20 02:42] LABS: Amphetamine Screen,Urine Not Detected (NotDetected); Barbiturate Screen,Urine Not Detected (NotDetected); Benzodiazepines Screen,Urine Not Detected (NotDetected); Cocaine Screen,Urine Not Detected (NotDetected); Methadone Screen, Urine Not Detected (NotDetected); Opiate Screen,Urine Not Detected (NotDetected); Oxycodone Screen, Urine Not Detected (NotDetected); Phencyclidine Screen,Urine Not Detected (NotDetected); Tricyclic Antidepressant,Urine Not Detected (NotDetected); Urn Cannabinoid Scrn Not Detected (NotDetected)
[2021-11-20] MEDS: IBUPROFEN 600 MG TAB PO PRN ×2 (04:05→16:49)
[2021-11-20 05:49] LABS: Basophils % (A) 0 %; Eosinophils % (A) 0 %; HCT 30.6 % (34.0-46.0); HGB 10.4 gm/dL (11.4-16.0); Lymphocytes # (A) 1.6 k/uL (1.0-4.8); Lymphocytes % (A) 9 %; MCH 30.2 pg (25.0-35.0); MCHC 34.1 g/dL (31.0-37.0); MCV 88.5 fL (80.0-100.0); Mean Platelet Volume 10.5; Monocytes # (A) 1.1 k/uL (0-1.0); Monocytes % (A) 7 %; Neutrophils # (A) 13.8 k/uL (1.3-7.7); Neutrophils % (A) 82 %; Platelet Count 192 k/uL (150-450); RBC 3.45 m/uL (3.80-5.40); RDW 13.8 % (11.5-15.5); WBC 16.8 k/uL (3.8-10.6)
--- NOTE | 2021-11-20 08:10 | P.DS ---
Providers Date of admission: 11/19/21 19:42 Expected date of discharge: 11/20/21 Attending physician: Sophie Bazan Primary care physician: Stated None Hospital Course: This is a 21-year-old white female 1 para 0 EDC 11/27/2021 at 38-6/7 weeks' gestation. Patient presented in spontaneous active labor. is essentially unremarkable. Group B strep cultures negative, blood type B positive, rubella status immune. Please see dictated history and physical for details. Amnio rectus revealed clear fluid. Patient went on to deliver the a liveborn male with scores of 8 and 9 at one and 5 minutes respectively. There was a nuchal cord 1 that was reduced. Estimated blood loss 300 mL's. Bilateral labial lacerations and a first-degree perineal laceration were encountered and easily repaired. Please see dictated delivery note for details. Infant weighed 7 lbs. 11 oz. or 3490 g. This morning the patient is doing well. She is voiding, ambulating, passing flatus without difficulty. Vital signs are stable and she is afebrile. Fundus is firm and in the midline, symmetric and 18 week size. infant has been circumcised, unremarkable procedure. Patient is judged to be in very good condition for discharge home. She will follow-up with me in the office in 6 weeks. I have reminded her no intercourse, tampons or douching. She will use [id number] Advil or Aleve, or Motrin as needed for pain. She will call me with any fevers shakes or chills, foul smelling or copious lochia, with the passage of large blood clots, with any pain not alleviated by [id number] products, or indeed with any concerns. Assessment: Doing well day #1 Patient Condition at Discharge: Good Plan - Discharge Summary Discharge Rx Participant: No New Discharge Prescriptions: No Action Pnv No.95/Ferrous Fum/Folic AC [ Multivitamin Tablet] 1 tab PO DAILY Discharge Medication List Pnv No.95/Ferrous Fum/Folic AC [ Multivitamin Tablet] 1 tab PO DAILY 11/12/21 [History] Follow up Appointment(s)/Referral(s): Sophie Bazan MD [STAFF PHYSICIAN] - 6 Weeks Discharge Disposition: HOME SELF-CARE
[2021-11-20] MEDS: SENNOSIDES-DOCUSATE SODIUM 1 EACH TAB PO SCH ×2 (08:56→20:30)
[2021-11-20] MEDS: LACTATED RINGERS 1,000 ML IV SCH ×2 (10:23→12:59)
[2021-11-20 17:21] VITALS: BP 115/71; PULSE 99; RESP 18; TEMP 98.7
--- NOTE | 2021-11-22 08:22 | P.MSEPDOC ---
Presenting Problems - Arrival Data Date of Arrival on Unit: 11/19/21 Time of Arrival on Unit: 08:11 Mode of Transport: Ambulatory - Complaint OB-Reason for Admission/Chief Complaint: Possible Onset of Labor Comment: Dr Wylie called report pt [address] Bazan presents co contractions. started [address] Bazan in office today. VE ant office 4 cm per pt. valdo every 4 min per pt. report and [place]. baby fht 125 very active and difficultto keep on monitor. pt breathing thru contractions. pt sits up to straddle bed with eachctx so signals intermittent unless held in place Medical History - Information : 1 Para: 0 Term: 0 : 0 Abortions: Spontaneous or Elective: 0 Number of Living Children: 0 - Gestational Age Gestational Age by BUBBA (wks/days): 34 Weeks and 6 Days Review of Systems - Review of Systems Constitutional: No problems Breast: No problems ENT: No problems Cardiovascular: No problems Respiratory: No problems Gastrointestinal: No problems Genitourinary: No problems Musculoskeletal: No problems Neurological: No problems Skin: No problems Vital Signs - Temperature Temperature: 98.7 F Temperature Source: Oral - Pulse Right Pulse Rate: 99 Pulse Assessment Method: Pulse Oximetry - Respirations Respiratory Rate: 18 Oxygen Delivery Method: Room Air O2 Sat by Pulse Oximetry: 98 - Blood Pressure Right Arm Blood Pressure: 115/71 Blood Pressure Mean: 85 Blood Pressure Source: Automatic Cuff Medical Screen Scoring - Cervical Exam Dilation (cm): 5 Effacement (%): 80 Station: -1 Membranes: Intact - Uterine Contractions Frequency From (mins): 3 Frequency To (mins): 4 Duration From (seconds): 50 Duration To (seconds): 70 Intensity: Strong - Assessment - Baby A Heart Rate - NICHD Category: Category II (Indeterminate) Physician Notification - Physician Notified Physician Notified Date: 11/19/21 Physician Notified Time: 18:35 Physician: Dr Ervin New Order Received: Yes - Notification Comment Comment: orders received to wait an hour after cervical exam and recheck pt and call. with report Maternal Triage Index - Prompt/Priority 3 Prompt Priority 3: Yes Criteria Met for Priority 3: regular contractions cervix 5 cm to 7 cm in 1 hour Disposition - Disposition OB Disposition: Admit, LDRP Suite Transferred to:: [facility] for labor Discharge Date: 11/20/21 Discharge Time: 21:30 I agree with the RN Medical Screening Exam: Yes Case reviewed; plan agreed upon as documented in EMR&OBIX.: Yes Comments: Patient was evaluated and managed by Dr. Wylie Diagnosis: LOUSE-BORNE TYPHUS
== END 2021-11-20 21:30 | disposition home or self-care (01) | DRG 805 ==
LOC: FBPOP 18:10 → 4FBP 19:42
PROVIDERS: ADMIT Obstetrics & Gynecology; ATTEND Obstetrics & Gynecology
PROC: 10E0XZZ Delivery of Products of Conception, External Approach (ICD-10-PCS; principal; 2021-11-19)
PROC: 0HQ9XZZ Repair Perineum Skin, External Approach (ICD-10-PCS; 2021-11-19)
PROC: 0UQGXZZ Repair Vagina, External Approach (ICD-10-PCS; 2021-11-19)
PROC: 0UQMXZZ Repair Vulva, External Approach (ICD-10-PCS; 2021-11-19)
DX: O69.81X0 Labor and delivery complicated by cord around neck, without compression, not applicable or unspecified (principal); O45.93 Premature separation of placenta, unspecified, third trimester; Z37.0 Single live birth; O70.0 First degree perineal laceration during delivery; Z3A.38 38 weeks gestation of pregnancy; Z88.0 Allergy status to penicillin; Z88.2 Allergy status to sulfonamides; Z86.16 Personal history of COVID-19
CPT/HCPCS: 80306; 85025; 86850; 86900; 86901; 99213

== ENCOUNTER 2023-07-16 09:50 | Emergency (ER) | payer BC, OTHER ==
[2023-07-16] MEDS ORDERED: SODIUM CHLORIDE 0.9% 1,000 ML IV STA (10:29)
[2023-07-16] MEDS ORDERED: KETOROLAC 15 MG/ML 1 ML VIAL IVP STA (10:40)
[2023-07-16] MEDS ORDERED: ONDANSETRON 4 MG/2 ML VIAL IVP STA (10:41)
--- NOTE | 2023-07-16 10:54 | ED ---
Abdominal Pain HPI - General Chief Complaint: Abdominal Pain Stated Complaint: Abd pain Time Seen by Provider: 07/16/23 10:28 Source: patient Mode of arrival: ambulatory Limitations: no limitations - History of Present Illness Initial Comments: Patient is a 23-year-old female who presents the emergency department for abdominal pain. It started 2 weeks ago. Pain is intermittently sharp and dull waxing and waning in severity but has been worsening over the past couple days. Pain radiates to the back. Patient feels nauseous no vomiting. No fever or chills. No urinary symptoms, changes in bowel habits. Patient states she is supposed to get an ultrasound in a few days with her primary care provider ordered but because of pain she was unable to wait. Denies chance of . No history of abdominal surgery - Related Data Previous Rx's Medication Instructions Recorded Ibuprofen [Motrin] 800 mg PO Q6HR #30 tab 07/16/23 Ondansetron Odt [Zofran Odt] 4 mg PO Q8HR PRN #10 tab 07/16/23 Allergies Allergy/AdvReac Type Severity Reaction Status Date / Time amoxicillin Allergy Rash/Hives Verified 07/16/23 13:59 Penicillins Allergy Rash/Hives Verified 07/16/23 14:00 sulfamethoxazole Allergy Rash/Hives Verified 07/16/23 13:59 [From Bactrim] trimethoprim [From Bactrim] Allergy Rash/Hives Verified 07/16/23 13:59 Review of Systems ROS Statement: Those systems with pertinent positive or pertinent negative responses have been documented in the HPI. ROS Other: All systems not noted in ROS Statement are negative. Past Medical History Past Medical History: No Reported History History of Any Multi-Drug Resistant Organisms: None Reported Past Surgical History: No Surgical Hx Reported Past Psychological History: No Psychological Hx Reported Smoking Status: Former smoker Past Alcohol Use History: Rare Past Drug Use History: Marijuana General Exam Limitations: no limitations General appearance: alert Eye exam: Present: normal appearance, PERRL, EOMI. Absent: scleral icterus, conjunctival injection, periorbital swelling Respiratory exam: Present: normal lung sounds bilaterally. Absent: respiratory distress, wheezes, rales, rhonchi, stridor Cardiovascular Exam: Present: regular rate, normal rhythm, normal heart sounds. Absent: systolic murmur, diastolic murmur, rubs, gallop, clicks GI/Abdominal exam: Present: soft, tenderness (mild lower), normal bowel sounds. Absent: distended, guarding, rebound, rigid Back exam: Present: normal inspection. Absent: CVA tenderness (R), CVA tendern ess (L), paraspinal tenderness, vertebral tenderness Neurological exam: Present: alert Psychiatric exam: Present: normal affect, normal mood Skin exam: Present: warm, dry, intact, normal color. Absent: rash Course Vital Signs 07/16/23 07/16/23 07/16/23 09:52 13:23 13:57 Temperature 97.8 F 98.1 F 98 F Pulse Rate 73 65 67 Respiratory 20 18 18 Rate Blood Pressure 167/105 131/86 129/72 O2 Sat by Pulse 99 100 100 Oximetry Medical Decision Making - Medical Decision Making Was pt. sent in by a medical professional or institution (, PA, HYDRAULIC REPAIRER, urgent care, hospital, or [facility]...) When possible be specific @ -No Did you speak to anyone other than the patient for history (EMS, parent, family, police, friend...)? What history was obtained from this source @ -No Did you review nursing and triage notes (agree or disagree)? Why? @ -I reviewed and agree with nursing and triage notes Were old charts reviewed (outside hosp., previous admission, EMS record, old EKG, old radiological studies, urgent care reports/EKG's, [facility] records)? Report findings @ -No old charts were reviewed Differential Diagnosis (chest pain, altered mental status, abdominal pain women, abdominal pain men, vaginal bleeding, weakness, fever, dyspnea, syncope, headache, dizziness, GI bleed, back pain, seizure, CVA, palpatations, mental health)? @ -Differential Abdominal Pain Women: Appendicitis, Cholecystitis, diverticulosis, ischemic bowel, pancreatitis, hepatitis, UTI, gastroenteritis, AAA, incarcerated hernia, bowel obstruction, constipation, inflammatory bowel, hepatitis, peptic ulcer disease, splenic infarction, perforated viscus, vulvitis, ovarian torsion, PID, kidney stone, placenta abruption, this is not meant to be an all-inclusive list EKG interpreted by me (3pts min.). @ -As above X-rays interpreted by me (1pt min.). @ -None done CT interpreted by me (1pt min.). @ -None done U/S interpreted by me (1pt. min.). @ -No acute process What testing was considered but not performed or refused? (CT, X-rays, U/S, labs)? Why? @ -None What meds were considered but not given or refused? Why? @ -None Did you discuss the management of the patient with other professionals ( professionals i.e. , PA, HYDRAULIC REPAIRER, lab, RT, psych nurse, social sciences chair, shipping room supervisor, teacher, personnel officer, onsite case manager)? Give summary @ -No Was smoking cessation discussed for >3mins.? @ -No Was critical care preformed (if so, how long)? @ -No Were there social determinants of health that impacted care today? How? (Homelessness, low income, unemployed, alcoholism, drug addiction, transpo rtation, low edu. Level, literacy, decrease access to med. care, residential, rehab)? @ -No Was there de-escalation of care discussed even if they declined (Discuss DNR or withdrawal of care, Hospice)? DNR status @ -No What co-morbidities impacted this encounter? (DM, HTN, Smoking, COPD, CAD, Cancer, CVA, ARF, Chemo, Hep., AIDS, mental health diagnosis, sleep apnea, morbid obesity)? @ -None Was patient admitted / discharged? Hospital course, mention meds given and route, prescriptions, significant lab abnormalities, going to OR and other pertinent info. @ -23-year-old female presenting for abdominal pain. Patient is nontoxic appearing. Afebrile. There is mild tenderness in the lower abdomen. Laboratory studies and ultrasound obtained. Labs unremarkable. Ultrasound interpreted by myself show no acute process. Given the patient has had symptoms for [address] we did discuss CT imaging versus close observation at home. Patient would like further imaging was obtained and interpreted by myself showing no acute process. Patient in stable medical condition for discharge. She will follow-up with her primary care provider. Undiagnosed new problem with uncertain prognosis? @ -No Drug Therapy requiring intensive monitoring for toxicity (Heparin, Nitro, Insulin, Cardizem)? @ -No Were any procedures done? @ -No Diagnosis/symptom? @ -Lower abdominal pain, nausea Acute, or Chronic, or Acute on Chronic? @ - Acute Uncomplicated (without systemic symptoms) or Complicated (systemic symptoms)? @ -uncomplicated Side effects of treatment? @ -No Exacerbation, Progression, or Severe Exacerbation? @ -No Poses a threat to life or bodily function? How? (Chest pain, [place], ME, pneumonia, PE, COPD, DKA, ARF, appy, cholecystitis, CVA, Diverticulitis, Homicidal, Suicidal, threat to staff... and all critical care pts) @ -No Dr. Thomas is my attending - Lab Data Result diagrams: 07/16/23 10:50 07/16/23 10:50 Lab Results 07/16/23 07/16/23 07/16/23 Range/Units 10:50 10:50 10:50 WBC 6.3 (3.8-10.6) k/uL RBC 4.87 (3.80-5.40) m/uL Hgb 14.0 (11.4-16.0) gm/dL Hct 41.7 (34.0-46.0) % MCV 85.6 (80.0-100.0) fL MCH 28.7 (25.0-35.0) pg MCHC 33.5 (31.0-37.0) g/dL RDW 14.0 (11.5-15.5) % Plt Count 216 (150-450) k/uL MPV 9.7 Neutrophils % 61 % Lymphocytes % 28 % Monocytes % 7 % Eosinophils % 2 % Basophils % 1 % Neutrophils # 3.9 (1.3-7.7) k/uL Lymphocytes # 1.8 (1.0-4.8) k/uL Monocytes # 0.4 (0-1.0) k/uL Eosinophils # 0.1 (0-0.7) k/uL Basophils # 0.0 (0-0.2) k/uL Sodium (137-145) mmol/L Potassium (3.5-5.1) mmol/L Chloride (98-107) mmol/L Carbon Dioxide (22-30) mmol/L Anion Gap mmol/L BUN (7-17) mg/dL Creatinine (0.52-1.04) mg/dL Est GFR (CKD-EPI)AfAm (>60 ml/min/1.73 sqM) Est GFR (CKD-EPI)NonAf (>60 ml/min/1.73 sqM) Glucose (74-99) mg/dL Plasma Lactic Acid Rex (0.7-2.0) mmol/L Calcium (8.4-10.2) mg/dL Total Bilirubin (0.2-1.3) mg/dL AST (14-36) U/L ALT (4-34) U/L Alkaline Phosphatase (38-126) U/L Total Protein (6.3-8.2) g/dL Albumin (3.5-5.0) g/dL Lipase (23-300) U/L Urine Color Yellow Urine Appearance Cloudy H (Clear) Urine pH 5.5 (5.0-8.0) Ur Specific [place] 1.029 (1.001-1.035) Urine Protein Trace H (Negative) Urine Glucose (UA) Negative (Negative) Urine Ketones Negative (Negative) Urine Blood Negative (Negative) Urine Nitrite Negative (Negative) Urine Bilirubin Negative (Negative) Urine Urobilinogen <2.0 (<2.0) mg/dL Ur Leukocyte Esterase Moderate H (Negative) Urine RBC 3 (0-5) /hpf Urine WBC 12 H (0-5) /hpf Ur Squamous Epith Cells 18 H (0-4) /hpf Urine Mucus Occasional H (None) /hpf Urine HCG, Qual Not Detected (Not Detectd) 07/16/23 07/16/23 Range/Units 10:50 10:50 WBC (3.8-10.6) k/uL RBC (3.80-5.40) m/uL Hgb (11.4-16.0) gm/dL Hct (34.0-46.0) % MCV (80.0-100.0) fL MCH (25.0-35.0) pg MCHC (31.0-37.0) g/dL RDW (11.5-15.5) % Plt Count (150-450) k/uL MPV Neutrophils % % Lymphocytes % % Monocytes % % Eosinophils % % Basophils % % Neutrophils # (1.3-7.7) k/uL Lymphocytes # (1.0-4.8) k/uL Monocytes # (0-1.0) k/uL Eosinophils # (0-0.7) k/uL Basophils # (0-0.2) k/uL Sodium 139 (137-145) mmol/L Potassium 4.4 (3.5-5.1) mmol/L Chloride 103 (98-107) mmol/L Carbon Dioxide 30 (22-30) mmol/L Anion Gap 6 mmol/L BUN 13 (7-17) mg/dL Creatinine 0.55 (0.52-1.04) mg/dL Est GFR (CKD-EPI)AfAm >90 (>60 ml/min/1.73 sqM) Est GFR (CKD-EPI)NonAf >90 (>60 ml/min/1.73 sqM) Glucose 104 H (74-99) mg/dL Plasma Lactic Acid Rex 0.7 (0.7-2.0) mmol/L Calcium 9.6 (8.4-10.2) mg/dL Total Bilirubin 0.4 (0.2-1.3) mg/dL AST 25 (14-36) U/L ALT 24 (4-34) U/L Alkaline Phosphatase 69 (38-126) U/L Total Protein 8.4 H (6.3-8.2) g/dL Albumin 4.7 (3.5-5.0) g/dL Lipase 48 (23-300) U/L Urine Color Urine Appearance (Clear) Urine pH (5.0-8.0) Ur Specific [place] (1.001-1.035) Urine Protein (Negative) Urine Glucose (UA) (Negative) Urine Ketones (Negative) Urine Blood (Negative) Urine Nitrite (Negative) Urine Bilirubin (Negative) Urine Urobilinogen (<2.0) mg/dL Ur Leukocyte Esterase (Negative) Urine RBC (0-5) /hpf Urine WBC (0-5) /hpf Ur Squamous Epith Cells (0-4) /hpf Urine Mucus (None) /hpf Urine HCG, Qual (Not Detectd) Disposition Clinical Impression: Lower abdominal pain, Nausea Disposition: HOME SELF-CARE Condition: Good Instructions (If sedation given, give patient instructions): Abdominal Pain (ED) Additional Instructions: Take medication as directed. Please follow-up with your primary care provider in 1-2 days. Return to the emergency department if you experience new, concerning, or worsening symptoms. Prescriptions: Ibuprofen [Motrin] 800 mg PO Q6HR #30 tab Ondansetron Odt [Zofran Odt] 4 mg PO Q8HR PRN #10 tab PRN Reason: Nausea Is patient prescribed a controlled substance at d/c from ED?: No Referrals: None,Stated [REFERRING] - 1-2 days
[2023-07-16 11:07] LABS: Basophils % (A) 1 %; Eosinophils # (A) 0.1 k/uL (0-0.7); Eosinophils % (A) 2 %; HCT 41.7 % (34.0-46.0); Lymphocytes # (A) 1.8 k/uL (1.0-4.8); Lymphocytes % (A) 28 %; MCH 28.7 pg (25.0-35.0); MCHC 33.5 g/dL (31.0-37.0); MCV 85.6 fL (80.0-100.0); Mean Platelet Volume 9.7; Monocytes # (A) 0.4 k/uL (0-1.0); Monocytes % (A) 7 %; Neutrophils # (A) 3.9 k/uL (1.3-7.7); Neutrophils % (A) 61 %; Platelet Count 216 k/uL (150-450); RBC 4.87 m/uL (3.80-5.40); WBC 6.3 k/uL (3.8-10.6)
[2023-07-16 11:15] LABS: Appearance,Urine Cloudy (Clear); Bilirubin,Urine Negative (Negative); Blood,Urine Negative (Negative); Color,Urine Yellow; Glucose,Urine (UA) Negative (Negative); Ketones,Urine Negative (Negative); Leukocyte Esterase,Urine Moderate (Negative); Mucus,Urine Occasional /hpf; Nitrite,Urine Negative (Negative); PH, Urine 5.5 (5.0-8.0); Protein,Urine Trace (Negative); RBC,Urine 3 /hpf (0-5); Specific Gravity,Urine 1.029 (1.001-1.035); Squamous Epithelial Cell,Urine 18 /hpf (0-4); Urobilinogen,Urine <2.0 mg/dL (<2.0); WBC,Urine 12 /hpf (0-5)
[2023-07-16 11:32] LABS: ALT 24 U/L (4-34); AST 25 U/L (14-36); African American GFR (CKD) >90 (>60 ml/min/1.73 sqM); Albumin 4.7 g/dL (3.5-5.0); Alkaline Phosphatase 69 U/L (38-126); Anion Gap 6 mmol/L; Blood Urea Nitrogen 13 mg/dL (7-17); Calcium 9.6 mg/dL (8.4-10.2); Carbon Dioxide 30 mmol/L (22-30); Chloride 103 mmol/L (98-107); Glucose 104 mg/dL (74-99); Lipase 48 U/L (23-300); Non-African American GFR(CKD) >90 (>60 ml/min/1.73 sqM); Potassium 4.4 mmol/L (3.5-5.1); Sodium 139 mmol/L (137-145); Total Bilirubin 0.4 mg/dL (0.2-1.3); Total Protein 8.4 g/dL (6.3-8.2)
--- NOTE | 2023-07-16 12:00 | US ---
EXAMINATION TYPE: US transvaginal DATE OF EXAM: 07/16/2023 COMPARISON: NONE CLINICAL INDICATION: Female, 23 years old with history of pain; pain on and off for 2 weeks, TECHNIQUE: TV. Transvaginal sonographic images Date of LMP: 07/04/2023 EXAM MEASUREMENTS: Uterus: 8.2 x 5.5 x 4.2 cm Endometrial Stripe: 0.6 cm Right Ovary: 3.2 x 2.6 x 2.3 cm Left Ovary: 3.3 x 2.9 x 1.7 cm 1. Uterus: Anteverted wnl 2. Endometrium: wnl 3. Right Ovary: wnl 4. Left Ovary: wnl Arterial and venous flow was seen in both ovaries. 5. Bilateral Adnexa: wnl 6. Posterior cul-de-sac: wnl IMPRESSION: No significant abnormality seen.
--- NOTE | 2023-07-16 13:25 | CT ---
EXAMINATION TYPE: CT abdomen pelvis w con DATE OF EXAM: 07/16/2023 COMPARISON: None HISTORY: Lower abd pain CT DLP: 2188.7 mGycm Automated exposure control for dose reduction was used. TECHNIQUE: Helical acquisition of images was performed from the lung bases through the pelvis. CONTRAST: Performed without Oral Contrast and with IV Contrast, patient injected with 100 mL of Isovue 300. FINDINGS: The lung bases are clear. The gallbladder is normal without distention, wall thickening, pericholecystic fluid or gallstones. T here is no biliary ductal dilatation. There is no focal mass or organomegaly involving the liver, pancreas, spleen or adrenal glands. There is no solid renal mass or hydronephrosis and there is homogeneous contrast enhancement of the r enal parenchyma. The caliber the abdominal aorta is normal is no retroperitoneal adenopathy or hemorr adolfo. The bowel loops are normal in caliber and there is no evidence of dilatation or obstruction. No infla mmatory changes are identified in the bowel wall or mesentery. There is no free intraperitoneal air or fluid. No pelvic mass, free fluid, abscess or adenopathy. The osseous structures and soft tissues are intact. IMPRESSION: No significant abnormality seen.
[2023-07-16 13:44] VITALS: RESP 18
[2023-07-16 14:01] VITALS: BP 129/72; PULSE 67; TEMP 98
== END 2023-07-16 13:58 | disposition home or self-care (01) ==
LOC: EC 09:50
DX: R10.30 Lower abdominal pain, unspecified (principal); R11.0 Nausea; F12.90 Cannabis use, unspecified, uncomplicated; Z87.891 Personal history of nicotine dependence; Z88.0 Allergy status to penicillin; Z88.1 Allergy status to other antibiotic agents; Z88.2 Allergy status to sulfonamides
CPT/HCPCS: 36415; 80053; 83605; 83690; 85025; 81001; 81025; 93975; 76830; 74177; 99284; 96374; 96375; 96361; J2405; J1885; Q9967

== ENCOUNTER 2024-05-03 22:40 | Emergency (ER) | payer OTHER, BC ==
[2024-05-03 22:43] VITALS: RESP 18; TEMP 98
[2024-05-03] MEDS: FAMOTIDINE 20 MG TAB PO STA (23:17)
[2024-05-03] MEDS: diphenhydrAMINE 50 MG/ML 1 ML VIAL IM STA (23:18)
--- NOTE | 2024-05-04 00:12 | ED ---
Skin/Abscess/FB HPI - General Chief complaint: Skin/Abscess/Foreign Body Stated complaint: Rash/Ear Pain Time Seen by Provider: 05/03/24 22:53 Source: patient Mode of arrival: ambulatory Limitations: no limitations - History of Present Illness Initial comments: 24-year-old female currently about 6 weeks presenting with chief complaint of rash. Patient started to break out in hives earlier today. She has allergies to penicillins and Bactrim, had no exposure to these allergens. She denies any new foods, medications, soaps, detergents, lotions, or other products. No difficulty breathing or swallowing. No abdominal pain or bleeding. No nausea or vomiting. She was seen at urgent care earlier today, she was advised to use topical Benadryl and a steroid cream. States that the hives are returning and bothersome. Present on the trunk and extremities. - Related Data Previous Rx's Medication Instructions Recorded Ibuprofen [Motrin] 800 mg PO Q6HR #30 tab 07/16/23 Ondansetron Odt [Zofran Odt] 4 mg PO Q8HR PRN #10 tab 07/16/23 Allergies Allergy/AdvReac Type Severity Reaction Status Date / Time amoxicillin Allergy Rash/Hives Verified 05/03/24 22:43 Penicillins Allergy Rash/Hives Verified 05/03/24 22:43 sulfamethoxazole Allergy Rash/Hives Verified 05/03/24 22:43 [From Bactrim] trimethoprim [From Bactrim] Allergy Rash/Hives Verified 05/03/24 22:43 Review of Systems ROS Statement: Those systems with pertinent positive or pertinent negative responses have been documented in the HPI. ROS Other: All systems not noted in ROS Statement are negative. Past Medical History Past Medical History: No Reported History History of Any Multi-Drug Resistant Organisms: None Reported Past Surgical History: No Surgical Hx Reported Past Psychological History: No Psychological Hx Reported Smoking Status: Former smoker Past Alcohol Use History: Rare Past Drug Use History: Marijuana General Exam Limitations: no limitations General appearance: alert, in no apparent distress Head exam: Present: atraumatic, normocephalic Eye exam: Present: normal appearance, EOMI ENT exam: Present: normal exam, normal oropharynx, mucous membranes moist, TM's normal bilaterally Neck exam: Present: normal inspection Respiratory exam: Present: normal lung sounds bilaterally. Absent: respiratory distress, wheezes, rales, rhonchi, stridor Cardiovascular Exam: Present: regular rate, normal rhythm, normal heart sounds. Absent: systolic murmur, diastolic murmur, rubs, gallop, clicks Neurological exam: Present: alert, oriented X3 Psychiatric exam: Present: normal affect, normal mood Skin exam: Present: urticaria Course Vital Signs 05/03/24 05/04/24 22:41 00:12 Temperature 98 F Pulse Rate 98 89 Respiratory 18 18 Rate Blood Pressure 143/81 133/85 O2 Sat by Pulse 98 98 Oximetry Medical Decision Making - Medical Decision Making Was pt. sent in by a medical professional or institution (, PA, COMPLAINT ANALYST, urgent care, hospital, or prison...) When possible be specific @ -No Did you speak to anyone other than the patient for history (EMS, parent, family, police, friend...)? What history was obtained from this source @ -No Did you review nursing and triage notes (agree or disagree)? Why? @ -I reviewed and agree with nursing and triage notes Were old charts reviewed (outside hosp., previous admission, EMS record, old EKG, old radiological studies, urgent care reports/EKG's, prison records)? Report findings @ -No old charts were reviewed Differential Diagnosis (chest pain, altered mental status, abdominal pain women, abdominal pain men, vaginal bleeding, weakness, fever, dyspnea, syncope, headache, dizziness, GI bleed, back pain, seizure, CVA, palpatations, mental health, musculoskeletal)? @ -Differential includes allergic reaction, cellulitis, Sanchez-Otoniel syndrome, this is not an all-inclusive list EKG interpreted by me (3pts min.). @ -As above X-rays interpreted by me (1pt min.). @ -None done CT interpreted by me (1pt min.). @ -None done U/S interpreted by me (1pt. min.). @ -None done What testing was considered but not performed or refused? (CT, X-rays, U/S, labs)? Why? @ -None What meds were considered but not given or refused? Why? @ -None Did you discuss the management of the patient with other professionals (professionals i.e. , PA, COMPLAINT ANALYST, lab, RT, psych nurse, clinical social work aide, dry transfer worker, teacher, signals officer, piano case and bench assembler)? Give summary @ -No Was smoking cessation discussed for >3mins.? @ -No Was critical care preformed (if so, how long)? @ -No Were there social determinants of health that impacted care today? How? (Homelessness, low income, unemployed, alcoholism, drug addiction, transportation, low edu. Level, literacy, decrease access to med. care, custodial, rehab)? @ -No Was there de-escalation of care discussed even if they declined (Discuss DNR or withdrawal of care, Hospice)? DNR status @ -No What co-morbidities impacted this encounter? (DM, HTN, Smoking, COPD, CAD, Cancer, CVA, ARF, Chemo, Hep., AIDS, mental health diagnosis, sleep apnea, morbid obesity)? @ -None Was patient admitted / discharged? Hospital course, mention meds given and route, prescriptions, significant lab abnormalities, going to OR and other pertinent info. @ -24-year-old female 6 weeks presenting chief complaint of hives that started today. Heart and lungs are clear to auscultation, no signs of angioedema. Hives are present on the trunk and extremities. Patient is given 50 mg Benadryl IM. She was also given Pepcid. Instructed to use an [id number] antihistamine daily. Follow-up with PCP and BLASTING MINER. Discharged home. Follow-up with PCP. Report back to ER with any new or worsening symptoms. Discussed return parameters and answered all questions. Patient conveyed verbal understanding and agreed to the plan. I discussed this case in detail with my attending Dr. Thurman Undiagnosed new problem with uncertain prognosis? @ -No Drug Therapy requiring intensive monitoring for toxicity (Heparin, Nitro, Insulin, Cardizem)? @ -No Were any procedures done? @ -No Diagnosis/symptom? @ -Urticaria Acute, or Chronic, or Acute on Chronic? @ -Acute Uncomplicated (without systemic symptoms) or Complicated (systemic symptoms)? @ -Uncomplicated Side effects of treatment? @ -No Exacerbation, Progression, or Severe Exacerbation? @ -No Poses a threat to life or bodily function? How? (Chest pain, [place], [place], pneumonia, PE, COPD, DKA, ARF, appy, cholecystitis, CVA, Diverticulitis, Homicidal, Suicidal, threat to staff... and all critical care pts) @ -No Disposition Clinical Impression: Urticaria Disposition: HOME SELF-CARE Condition: Good Instructions (If sedation given, give patient instructions): Urticaria (ED) Additional Instructions: Follow-up with PCP. Report back to ER with any new or worsening symptoms. Is patient prescribed a controlled substance at d/c from ED?: No Referrals: Seth Perla MD [Primary Care Provider] - 1-2 days Time of Disposition: 00:11
[2024-05-04 00:14] VITALS: BP 133/85; PULSE 89
== END 2024-05-04 00:23 | disposition home or self-care (01) ==
LOC: EC 22:40
DX: O99.711 Diseases of the skin and subcutaneous tissue complicating pregnancy, first trimester (principal); L50.9 Urticaria, unspecified; Z88.0 Allergy status to penicillin; Z88.1 Allergy status to other antibiotic agents; Z88.2 Allergy status to sulfonamides; Z88.8 Allergy status to other drugs, medicaments and biological substances; Z87.891 Personal history of nicotine dependence; Z3A.01 Less than 8 weeks gestation of pregnancy
CPT/HCPCS: 99282; 96372; J1200

== ENCOUNTER 2024-05-04 12:59 | Emergency (ER) | payer OTHER, BC ==
--- NOTE | 2024-05-04 13:25 | ED ---
Allergic Reaction HPI - General Stated complaint: allergic reaction/hand swelling Time Seen by Provider: 05/04/24 13:15 Source: patient, RN notes reviewed - History of Present Illness Initial Comments: This is a 24-year-old female presents emergency for acute complaint of allergic reaction. Patient was evaluated yesterday 05/03 for allergic reaction that was urticarial and puritic States that she has had similar and periorbital swelling that is worsened over the past day. Patient is also experiencing right hand swelling is concerned that she is unable to remove the ring of the finger. She denies shortness of breath, lip or tongue edema. Patient was instructed to take allergy medication during the day and Benadryl at night. - Related Data Previous Rx's Medication Instructions Recorded Ibuprofen [Motrin] 800 mg PO Q6HR #30 tab 07/16/23 Ondansetron Odt [Zofran Odt] 4 mg PO Q8HR PRN #10 tab 07/16/23 Allergies Allergy/AdvReac Type Severity Reaction Status Date / Time amoxicillin Allergy Rash/Hives Verified 05/03/24 22:43 Penicillins Allergy Rash/Hives Verified 05/03/24 22:43 sulfamethoxazole Allergy Rash/Hives Verified 05/03/24 22:43 [From Bactrim] trimethoprim [From Bactrim] Allergy Rash/Hives Verified 05/03/24 22:43 Review of Systems ROS Statement: Those systems with pertinent positive or pertinent negative responses have been documented in the HPI. ROS Other: All systems not noted in ROS Statement are negative. Past Medical History Past Medical History: No Reported History History of Any Multi-Drug Resistant Organisms: None Reported Past Surgical History: No Surgical Hx Reported Past Psychological History: No Psychological Hx Reported Smoking Status: Former smoker Past Alcohol Use History: Rare Past Drug Use History: Marijuana General Exam - General Exam Comments Initial Comments: Visual Physical Exam Vital signs reviewed General: Well-appearing, nontoxic, no acute distress. Head: Normocephalic, atraumatic Eyes: PERRLA, EOMI ENT: Airway patent Chest: Nonlabored breathing Skin: No visual rash, normal skin tone Neuro: Alert and oriented 3 Musculoskeletal: No gross abnormalities General appearance: alert, in no apparent distress Head exam: Present: atraumatic, normocephalic, normal inspection Eye exam: Present: normal appearance, PERRL, EOMI, periorbital swelling. Absent: periorbital tenderness Pupils: Present: normal accommodation ENT exam: Present: normal exam, mucous membranes moist Neck exam: Present: normal inspection. Absent: tenderness, meningismus, lymphadenopathy Respiratory exam: Present: normal lung sounds bilaterally. Absent: respiratory distress, wheezes, rales, rhonchi, stridor Cardiovascular Exam: Present: regular rate, normal rhythm, normal heart sounds. Absent: systolic murmur, diastolic murmur, rubs, gallop, clicks GI/Abdominal exam: Present: soft, normal bowel sounds. Absent: distended, tenderness, guarding, rebound, rigid Extremities exam: Present: other (Bilateral upper extremity hand edema) Back exam: Present: normal inspection Neurological exam: Present: alert, oriented X3, CN II-XII intact Psychiatric exam: Present: normal affect, normal mood Skin exam: Present: warm, dry, intact, normal color. Absent: rash Course Vital Signs 05/04/24 05/04/24 13:50 17:04 Temperature 97.9 F 97.8 F Pulse Rate 83 80 Respiratory 18 16 Rate Blood Pressure 146/83 137/82 O2 Sat by Pulse 97 98 Oximetry Medical Decision Making - Medical Decision Making Was pt. sent in by a medical professional or institution (, PA, OFFICE SERVICES ASSISTANT, urgent care, hospital, or [facility]...) When possible be specific @ -No Did you speak to anyone other than the patient for history (EMS, parent, family, police, friend...)? What history was obtained from this source @ -No Did you review nursing and triage notes (agree or disagree)? Why? @ -I reviewed and agree with nursing and triage notes Were old charts reviewed (outside hosp., previous admission, EMS record, old EKG, old radiological studies, urgent care reports/EKG's, [facility] records)? Report findings @ -The patient's previous emergency department visit note where she presented for monitoring of shortness of breath admitted to tactile discharged home in stable condition Differential Diagnosis (chest pain, altered mental status, abdominal pain women, abdominal pain men, vaginal bleeding, weakness, fever, dyspnea, syncope, headache, dizziness, GI bleed, back pain, seizure, CVA, palpatations, mental health, musculoskeletal)? @ -Dermatitis, allergic reaction, pruritus, urticaria, edema, this list is not all inclusive EKG interpreted by me (3pts min.). @ -None X-rays interpreted by me (1pt min.). @ -None done CT interpreted by me (1pt min.). @ -None done U/S interpreted by me (1pt. min.). @ -None done What testing was considered but not performed or refused? (CT, X-rays, U/S, labs)? Why? @ -None What meds were considered but not given or refused? Why? @ -None Did you discuss the management of the patient with other professionals (professionals i.e. , PA, OFFICE SERVICES ASSISTANT, lab, RT, psych nurse, vp digital marketing social media and crm, gut dropper, teacher, recruitment officer, casework manager)? Give summary @ -No Was smoking cessation discussed for >3mins.? @ -No Was critical care preformed (if so, how long)? @ -No Were there social determinants of health that impacted care today? How? (Homelessness, low income, unemployed, alcoholism, drug addiction, transportation, low edu. Level, literacy, decrease access to med. care, custodial, rehab)? @ -No Was there de-escalation of care discussed even if they declined (Discuss DNR or withdrawal of care, Hospice)? DNR status @ -No What co-morbidities impacted this encounter? (DM, HTN, Smoking, COPD, CAD, Cancer, CVA, ARF, Chemo, Hep., AIDS, mental health diagnosis, sleep apnea, morbid obesity)? @ -None Was patient admitted / discharged? Hospital course, mention meds given and route, prescriptions, significant lab abnormalities, going to OR and other pertinent info. @Discharged. 24-year-old female with allergic reaction., Patient is in no signs of acute distress and resting comfortably on room air. There are signs of angioedema. Patient does have mild periorbital edema and hand edema. Diagnosis Removed by nursing staff on the patient's right hand. She is provided with a dose of IM Benadryl and reevaluation states that her hand is feeling much better and swelling has diminished. Recommend the patient continue to use oral allergy medication and Benadryl at night as prescribed. All questions answered at bedside and strict return parameters discussed with the patient she is verbali zed understanding. Discussed with Dr. Bolanos Undiagnosed new problem with uncertain prognosis? @ -No Drug Therapy requiring intensive monitoring for toxicity (Heparin, Nitro, Insulin, Cardizem)? @ -No Were any procedures done? @ -No Diagnosis/symptom? @allergic reaction, edema Acute, or Chronic, or Acute on Chronic? @ -Acute Uncomplicated (without systemic symptoms) or Complicated (systemic symptoms)? @ -Uncomplicated Side effects of treatment? @ -No Exacerbation, Progression, or Severe Exacerbation? @ -No Poses a threat to life or bodily function? How? (Chest pain, USA, [place], pneumonia, PE, COPD, DKA, ARF, appy, cholecystitis, CVA, Diverticulitis, Homicidal, Suicidal, threat to staff... and all critical care pts) @ -No Disposition Clinical Impression: Allergic reaction, Edema, Swelling of ring finger Disposition: HOME SELF-CARE Condition: Good Instructions (If sedation given, give patient instructions): General Allergic Reaction (ED) Additional Instructions: Return to the emergency department for any new or worsening symptoms. Recommend that you continue to take antihistamine daily prescribed by your primary care physician. Recommend follow-up with your PCP this week for further evaluation. Is patient prescribed a controlled substance at d/c from ED?: No Referrals: Seth Perla MD [Primary Care Provider] - 1-2 days Time of Disposition: 15:50
[2024-05-04] MEDS: diphenhydrAMINE 50 MG/ML 1 ML VIAL IM STA (15:31)
[2024-05-04 17:05] VITALS: BP 137/82; PULSE 80; RESP 16; TEMP 97.8
== END 2024-05-04 17:05 | disposition home or self-care (01) ==
LOC: EC 12:59
DX: T78.3XXA Angioneurotic edema, initial encounter (principal); Z87.891 Personal history of nicotine dependence; Z88.0 Allergy status to penicillin; Z88.2 Allergy status to sulfonamides; Z88.1 Allergy status to other antibiotic agents
CPT/HCPCS: 99283; 96372; J1200

== ENCOUNTER 2024-05-12 14:09 | Emergency (ER) | payer BC ==
--- NOTE | 2024-06-10 18:27 | US ---
Ellyn Ma : 2000 EXAMINATION TYPE: Ultrasound OB <= 14 week fetus transvaginal DATE OF EXAM: 05/12/2024 COMPARISON: None available during downtime CLINICAL INDICATION: 24-year-old female with vaginal bleeding at 9 weeks EXAM PERFORMED: Transabdominal and transvaginal EXAM MEASUREMENTS: GESTATIONAL AGE / DATING Established gestational age: Estimated 9 weeks Dates by LMP: Unknown Dates by Current Scan for: (5 weeks/6 days) EDC: 01/06/2025 MATERNAL ANATOMY Uterus: 9.5 x 5.1 x 5.9 cm Right Ovary: Left Ovary: 2.8 x 2.4 x 1.4 cm Post CDS / Adnexa: 3.2 x 1.8 x 1.9 cm Presence of free fluid: Small amount of free fluid probably physiologic Presence of corpus luteal cyst: None Presence of subchorionic bleed: None GESTATION / SURVEY CRL: 2.5 mm (5 weeks/6 days) Yolk Sac (normal less than 6mm): 6 mm Heart Rate: 67 bpm, bradycardia Gestational sac: Located along the lower uterine segment. Beta HcG (if available): Not available at this time IMPRESSION: Intrauterine with gestational sac abnormally located along the lower uterine segment. The f etal pole measuring 2.5 mm [address] the at 5 weeks 6 days which is discordant with estimated gestational age of 9 weeks. Also, there is bradycardia of 67 BPM and borderline, abnormally enl arged yolk sac at 6 mm. Given low positioning of the gestational sac, unable to exclude a threatened or inevitable . Appropriate follow-up advised.
== END 2024-05-12 18:37 | disposition home or self-care (01) ==
LOC: EC 14:09
DX: O03.4 Incomplete spontaneous abortion without complication (principal)
CPT/HCPCS: 76801; 76817; 86850; 86900; 86901; 99284